=== PATIENT | female | born 1970 | race Caucasian/White ===

== ENCOUNTER → 2021-07-02 | Outpatient (CLI) | payer OTHER | LOC: KOH-I 13:16 | DX: M25.512 Pain in left shoulder (principal) | CPT/HCPCS: 73030 ==

== ENCOUNTER 2021-11-06 07:19 | Emergency (ER) | payer OTHER ==
[2021-11-06] MEDS ORDERED: HYDROCODON-ACE1 EAC4 PO (10:30)
== END 2021-11-06 10:36 | disposition home or self-care (01) ==
LOC: ER1 07:19
DX: S82.62XA Displaced fracture of lateral malleolus of left fibula, initial encounter for closed fracture (principal); I10 Essential (primary) hypertension; Z88.2 Allergy status to sulfonamides; Z88.5 Allergy status to narcotic agent; W10.9XXA Fall (on) (from) unspecified stairs and steps, initial encounter; Y92.009 Unspecified place in unspecified non-institutional (private) residence as the place of occurrence of the external cause
CPT/HCPCS: 73610; 73630; 99283